=== PATIENT | female | born 1945 | race Caucasian/White ===

== ENCOUNTER → 2017-03-23 | Outpatient (CLI) | payer MEDICARE, MEDICAID ==
[~2017-03-23] MED LIST: BACTRIM DS 8001 TAB PO; CIPRO 500MG TA500 MG PO; FLEXERIL10 MG PO; MEDROL 4MG. DOSE4 MG PO; PYRIDIUM 200MG200 MG PO; TESSALON PERLE100 MG PO
== END ==
LOC: LAB 16:32
DX: L02.31 Cutaneous abscess of buttock (principal)